=== PATIENT | female | born 1980 | race Two or more races ===

== ENCOUNTER 2022-12-14 10:02 | Day surgery (SDC) | payer OTHER ==
[~2022-12-14 10:02] MED LIST: ALLEGRA ALLERG180 MG PO; CRESTOR10 MG PO; DIOVAN40 MG PO
== END 2022-12-14 20:00 | disposition home or self-care (01) ==
LOC: CIR.AMB 10:02
PROVIDERS: ATTEND Obstetrics & Gynecology
DX: N93.8 Other specified abnormal uterine and vaginal bleeding (principal); N94.5 Secondary dysmenorrhea; N92.0 Excessive and frequent menstruation with regular cycle; Z20.822 Contact with and (suspected) exposure to COVID-19; Z88.8 Allergy status to other drugs, medicaments and biological substances